=== PATIENT | female | born 1950 | race Caucasian/White ===

== ENCOUNTER 2021-04-15 07:05 | Day surgery (SDC) | payer MEDICARE, OTHER ==
[2021-04-15] MEDS: Lactated Ringers 1,000 ML IV SCH (07:20)
[2021-04-15] MEDS ORDERED: fentaNYL 100 MCG/2 ML SDV ONE (08:07)
[2021-04-15] MEDS ORDERED: Propofol 200 MG/20 ML SDV ONE ×2 (08:07→09:59)
== END 2021-04-15 11:57 | disposition home or self-care (01) ==
LOC: VM.SDS 07:05
PROVIDERS: ATTEND Family Medicine
DX: D12.3 Benign neoplasm of transverse colon (principal); K51.40 Inflammatory polyps of colon without complications; K57.30 Diverticulosis of large intestine without perforation or abscess without bleeding; I10 Essential (primary) hypertension; I65.29 Occlusion and stenosis of unspecified carotid artery; E66.9 Obesity, unspecified; E11.9 Type 2 diabetes mellitus without complications; E87.6 Hypokalemia; G43.909 Migraine, unspecified, not intractable, without status migrainosus; R00.2 Palpitations; Z98.890 Other specified postprocedural states; Z79.899 Other long term (current) drug therapy; Z88.0 Allergy status to penicillin; Z88.2 Allergy status to sulfonamides; Z88.8 Allergy status to other drugs, medicaments and biological substances; Z80.0 Family history of malignant neoplasm of digestive organs; Z86.16 Personal history of COVID-19; Z68.30 Body mass index [BMI] 30.0-30.9, adult
CPT/HCPCS: 00811; 82947; 88305; J2704; J3010; J7120

== ENCOUNTER 2021-10-12 12:03 | Emergency (ER) | payer MEDICARE, OTHER ==
[2021-10-12] MEDS ORDERED: Sodium Chloride 0.9% 10 ML Syringe FLUSH PRN (12:20)
[2021-10-12] MEDS ORDERED: Lactated Ringers 1,000 ML IV ONE (12:21)
[2021-10-12 13:05] LABS: ANION GAP 11.5 mmol/L (5-15); CHLORIDE,CL 100 mmol/L (98-107); ESTIMATED GFR 60 mL/min (>=60); SODIUM,NA 139 mmol/L (136-145)
[2021-10-12 13:25] LABS: CORONAVIRUS COVID-19 NAA NEGATIVE (NEGATIVE); RESPIRATORY SYNCYTIAL VIR NAA NEGATIVE (NEGATIVE)
== END 2021-10-12 13:46 | disposition home or self-care (01) ==
LOC: VM.ED 12:03
DX: R07.89 Other chest pain (principal); E86.0 Dehydration; E11.9 Type 2 diabetes mellitus without complications; E66.9 Obesity, unspecified; Z68.30 Body mass index [BMI] 30.0-30.9, adult; Z88.1 Allergy status to other antibiotic agents; Z88.8 Allergy status to other drugs, medicaments and biological substances; Z88.2 Allergy status to sulfonamides
CPT/HCPCS: 0241U; 71045; 80053; 81003; 83735; 83880; 84100; 84484; 85025; 85379; 86140; 93005; 96360; 99284; 99285-25; J7120

== ENCOUNTER 2023-03-04 09:54 | Emergency (ER) | payer MEDICARE, OTHER ==
[2023-03-04] MEDS ORDERED: Sodium Chloride 0.9% 10 ML Syringe FLUSH PRN ×2 (10:23→14:31)
[2023-03-04 10:31] LABS: BASOPHILS PERCENT AUTO 0.2 % (0.2-1.2); EOSINOPHILS PERCENT AUTO 0.4 % (0.0-4.0); HEMATOCRIT 41.7 % (33.0-47.0); HEMOGLOBIN 13.8 g/dL (12.0-16.0); IMMATURE GRAN ABSOLUTE AUTO 0.01 x10^3/uL (0.00-0.07); LYMPHOCYTES ABSOLUTE AUTO 1.4 x10^3/uL (1.0-4.8); LYMPHOCYTES PERCENT AUTO 13.5 % (25.0-50.0); MEAN CORPUSCULAR HEMOGLOBIN 30.1 pg (26.0-32.0); MEAN CORPUSCULAR HGB CONC 33.1 g/dL (32.0-36.0); MONOCYTES PERCENT AUTO 9.4 % (2.0-11.0); NEUTROPHILS ABSOLUTE AUTO 7.9 x10^3/uL (1.8-7.7); NEUTROPHILS PERCENT AUTO 76.4 % (50.0-80.0); PLATELET COUNT,PLT 236 x10^3/uL (130-400); RED BLOOD CELL COUNT 4.58 x10^6/uL (4.00-5.50); WHITE BLOOD CELL COUNT,WBC 10.3 x10^3/uL (4.0-10.0)
[2023-03-04 10:33] LABS: APPEARANCE,URINE CLOUDY (CLEAR); BILIRUBIN,URINE SMALL (NEGATIVE); COLOR,URINE YELLOW (YELLOW); GLUCOSE,URINE NEGATIVE (NEGATIVE); KETONES,URINE NEGATIVE (NEGATIVE); LEUKOCYTE ESTERASE,URINE MODERATE (NEGATIVE); NITRITE,URINE NEGATIVE (NEGATIVE); OCCULT BLOOD,URINE MODERATE (NEGATIVE); PROTEIN,URINE 100 mg/dL (NEGATIVE); UROBILINOGEN,URINE 0.2 EU/dL (0.2)
[2023-03-04] MEDS: Ondansetron 4 MG/2 ML SDV IVPUSH ONE (10:35)
[2023-03-04 10:40] LABS: AMORPHOUS SEDIMENT,URINE FEW; BACTERIA,URINE FEW /HPF (NOT SEEN); MUCUS,URINE FEW /LPF (NOT SEEN); SQUAMOUS EPITHELIAL CELLS,UR MANY /HPF (NOT SEEN)
[2023-03-04 10:47] LABS: ALANINE AMINOTRANSFERASE,ALT 29 U/L (14-59); ALBUMIN 3.5 g/dL (3.4-5.0); ALKALINE PHOSPHATASE 68 U/L (46-116); ASPARTATE AMNIOTRANSFERASE,AST 21 U/L (15-37); BILIRUBIN TOTAL 1.2 mg/dL (0.2-1.0); BLOOD UREA NITROGEN,BUN 13 mg/dL (7-18); CALCIUM 8.9 mg/dL (8.5-10.1); CARBON DIOXIDE,CO2 24 mmol/L (21-32); CHLORIDE,CL 100 mmol/L (98-107); CREATININE 1.3 mg/dL (0.55-1.02); GLUCOSE RANDOM 220 mg/dL (70-99); LIPASE 38 U/L (19-71); MAGNESIUM 1.5 mg/dL (1.8-2.4); POTASSIUM,K 4.2 mmol/L (3.5-5.1); SODIUM,NA 138 mmol/L (136-145)
[2023-03-04 10:49] LABS: ANION GAP 18.2 mmol/L (5-15); ESTIMATED GFR 44 mL/min (>=60)
[2023-03-04 10:53] LABS: LACTIC ACID 3.2 mmol/L (0.4-2.0)
[2023-03-04] MEDS: Sodium Chloride 0.9% 1,000 ML IV SCH (11:00)
[2023-03-04] MEDS: cefTRIAXone 2 GM Vial IVPUSH ONE (11:29)
[2023-03-04] MEDS: Iopamidol 612 MG/ML 100 ML Bottle IVPUSH ONE (11:48)
[2023-03-04] MEDS: Sodium Chloride 0.9% 500 ML IV ONE ×2 (12:00→14:02)
[2023-03-04] MEDS: Take Home: Amoxicillin/Clavulanate K 875-125 MG Tab, 2 Tab Pack PO ONE (13:30)
[2023-03-04] MEDS: Take Home: Nitrofurantoin Monohydrate/Macrocrystalline 100 MG, 6 Cap Pack PO ONE (13:40)
[2023-03-04] MEDS ORDERED: Cefdinir 300 MG Cap PO SCH (14:30)
[2023-03-04] MEDS: Ertapenem 1 GM Vial IVPUSH SCH (14:53)
[2023-03-04] MEDS ORDERED: Cefuroxime 250 MG Tab PO SCH (21:00)
[2023-03-05] MEDS ORDERED: Ertapenem 1 GM in Sodium Chloride 0.9% 100 ML IV SCH (21:00)
== END 2023-03-04 15:00 | disposition home or self-care (01) ==
LOC: VM.ED 09:54
DX: K57.32 Diverticulitis of large intestine without perforation or abscess without bleeding (principal); N30.90 Cystitis, unspecified without hematuria; I10 Essential (primary) hypertension; E11.9 Type 2 diabetes mellitus without complications; E66.9 Obesity, unspecified; Z79.899 Other long term (current) drug therapy; Z88.2 Allergy status to sulfonamides; Z88.8 Allergy status to other drugs, medicaments and biological substances; Z88.1 Allergy status to other antibiotic agents; Z88.6 Allergy status to analgesic agent; Z68.30 Body mass index [BMI] 30.0-30.9, adult
CPT/HCPCS: 36415; 74177; 80053; 81001; 83605; 83690; 83735; 85025; 87086; 87088; 87186; 96361; 96374; 96375; 99284; 99284-25; A9270-GY; J0696; J1335; J2405; J7030; J7040; Q9967